=== PATIENT | female | born 1940 | race Caucasian/White ===

== ENCOUNTER 2016-12-21 15:44 | Day surgery (SDC) | payer MEDICARE ==
[~2016-12-21] VITALS: Ht 157.5 cm; Wt 81.6 kg
[~2016-12-21 15:44] MED LIST: DOLOBID500 MG OR
--- NOTE | 2016-12-21 16:36 | Emergency Room Report ---
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 N Clinical Suspician of Infection? N Mental Status: 1 - Regular (Normal Baseline) Sepsis Risk:Possible Sepsis Risk Have you (or family members/close friends) recently traveled outside the [place]? N If Yes, where/when: Have you had exposure to infectious disease within the past month? N TB? Other? Specify: Source patient, RN notes reviewed Exam Limitations no limitations Comment Pt smashed her right 5th finger in a sliding door at home and comes to the ED with the tip of the finger avulsed. Bleeding is controlled. Not UTD on tetanus Cardiac Chest Pain Chest pain indicative of cardiac No ALLERGIES Coded Allergies: Penicillins (12/21/16) Home Medications Active Scripts Diflunisal (Dolobid) 250 MG OR BID #40 TAB Prov: 09/24/13 History Medical History General CAD? No Angina: No [place]: No Hypertension? Yes Hyperlipidemia? No CHF? No DVT? No PE? No COPD? No Asthma? No Anemia? No GERD? No Gastric ulcers? No GI Bleed? No Hernia? No Thyroid Problems? No Hypothyroidism? No CVA? No Seizures? No Diabetes? No Renal Insuffiency? No End Stage Renal Disease? No UTI? No Stones? No BPH? No GB Disease: No Nephritic Syndrome? No Asplenia? No Hepatitis? No Sickle Cell Disease? No Arthritis? No Migraines? No Cataracts? No Glaucoma? No MRSA? No HIV? No TB? No Anxiety? No Depression? No Cancer? No Immunization Hx DT/Tetanus UNKNOWN Surgical Hx Previous Surgery?Y Hysterect Social History Smoking Hx Smoker: Never Smoker Tobacco: No Alcohol Alcohol: No Review of Systems All Other Systems Reviewed and Negative Constitutional see HPI Musculoskeletal see HPI Skin see HPI Physical Exam Vital Signs Vital Signs Date Time Temp Pulse Resp B/P Pulse O2 O2 Flow FiO2 Ox Delivery Rate 12/21 1833 97.9 80 20 162/88 94 12/21 1737 97.9 86 20 162/88 94 12/21 1614 97.9 93 20 176/63 97 12/21 1557 97.9 93 20 176/63 97 General Appearance normal appearance, WD/WN, mild distress Respiratory Status No: respiratory distress. 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 No Results/Orders Current Medication Orders Sig/Sujatha Start time Last Medication Dose Route Stop Time Status Admin Fentanyl Citrate 0 .STK-MED ONE 12/21 1846 DC IV Midazolam HCl 0 .STK-MED ONE 12/21 184 DC .ROUTE Lactated Ringer's 1,000 ML .STK-MED ONE 12/21 1829 DC IV Cefazolin Sodium 0 .STK-MED ONE 12/21 174 DCr .ROUTE Sodium Chloride 50 ML .STK-MED ONE 12/21 174 DC IV Cefazolin Sodium 1 GM ONCE ONE 12/21 1730 DCr 12/21 Sodium Chloride 50 ML IV 12/21 1759 1744 Sodium Chloride 10 ML PRN PRN 12/21 1730 AC IV 12/22 1725 Diphtheria/Pertussis/ 0 .STK-MED ONE 12/21 1647 DC Tetanus Vacc IM Diphtheria/Pertussis/ 0.5 ML ONCE ONE 12/21 1645 DC 12/21 Tetanus Vacc IM 12/21 1646 1653 Orders Procedure Date/time Status ELECTROCARDIOGRAM REQUEST 12/21 183 Active CBC WITH AUTO DIFF 12/21 183 Active BASIC METABOLIC PROFILE 12/21 183 Active [facility] PHYS CONSULT 12/21 1731 Active IV SALINE LOCK 12/21 1727 Active [id number] (PINKY)-3 VIEWS 12/21 1600 Active XRAY/CT/US XRAY/CT/US XRAY finger(s) XR interpretation by reviewed by me Xray Results Avulsion of the tip of her right 5th finger and also avulsion of the tuft of the distal phalanx Departure Departure Time of Disposition 1849 Disposition Still a Patient Clinical Impression Primary Impression: Avulsion, finger tip Qualifiers: Encounter type: initial encounter Qualified Code: S61.209A - Unspecified open wound of unspecified finger without damage to nail, initial encounter Condition STABLE Referrals TJ DENG, BOB MYRICK Additional Instructions Pt being taken to surgery by Dr. Oneil for repair of fingertip Discharge Counseling Counseled pt/family regarding diagnosis, test results, follow up needs ED Critical Care Critical Care No If Critical Care minutes are documented, the time involved in the performance of seperately reportable procedures was not counted toward critical care time documented. I directly delivered medical care to this critically ill and/or injured patient. Timely evaluation and treatment was necessary to address the significant organ system(s) dysfunction present in this patient. at 4412
--- NOTE | 2016-12-21 16:36 | Emergency Room Report ---
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 N Clinical Suspician of Infection? N Mental Status: 1 - Regular (Normal Baseline) Sepsis Risk:Possible Sepsis Risk Have you (or family members/close friends) recently traveled outside the [place]? N If Yes, where/when: Have you had exposure to infectious disease within the past month? N TB? Other? Specify: Source patient, RN notes reviewed Exam Limitations no limitations Comment Pt smashed her right 5th finger in a sliding door at home and comes to the ED with the tip of the finger avulsed. Bleeding is controlled. Not UTD on tetanus Cardiac Chest Pain Chest pain indicative of cardiac No ALLERGIES Coded Allergies: Penicillins (12/21/16) Home Medications Active Scripts Diflunisal (Dolobid) 250 MG OR BID #40 TAB Prov: 09/24/13 History Medical History General CAD? No Angina: No [place]: No Hypertension? Yes Hyperlipidemia? No CHF? No DVT? No PE? No COPD? No Asthma? No Anemia? No GERD? No Gastric ulcers? No GI Bleed? No Hernia? No Thyroid Problems? No Hypothyroidism? No CVA? No Seizures? No Diabetes? No Renal Insuffiency? No End Stage Renal Disease? No UTI? No Stones? No BPH? No GB Disease: No Nephritic Syndrome? No Asplenia? No Hepatitis? No Sickle Cell Disease? No Arthritis? No Migraines? No Cataracts? No Glaucoma? No MRSA? No HIV? No TB? No Anxiety? No Depression? No Cancer? No Immunization Hx DT/Tetanus UNKNOWN Surgical Hx Previous Surgery?Y Hysterect Social History Smoking Hx Smoker: Never Smoker Tobacco: No Alcohol Alcohol: No Review of Systems All Other Systems Reviewed and Negative Constitutional see HPI Musculoskeletal see HPI Skin see HPI Physical Exam Vital Signs Vital Signs Date Time Temp Pulse Resp B/P Pulse O2 O2 Flow FiO2 Ox Delivery Rate 12/21 1833 97.9 80 20 162/88 94 12/21 1737 97.9 86 20 162/88 94 12/21 1614 97.9 93 20 176/63 97 12/21 1557 97.9 93 20 176/63 97 General Appearance normal appearance, WD/WN, mild distress Respiratory Status No: respiratory distress. 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 No Results/Orders Current Medication Orders Sig/Sujatha Start time Last Medication Dose Route Stop Time Status Admin Fentanyl Citrate 0 .STK-MED ONE 12/21 1846 DC IV Midazolam HCl 0 .STK-MED ONE 12/21 184 DC .ROUTE Lactated Ringer's 1,000 ML .STK-MED ONE 12/21 1829 DC IV Cefazolin Sodium 0 .STK-MED ONE 12/21 174 DCr .ROUTE Sodium Chloride 50 ML .STK-MED ONE 12/21 174 DC IV Cefazolin Sodium 1 GM ONCE ONE 12/21 1730 DCr 12/21 Sodium Chloride 50 ML IV 12/21 1759 1744 Sodium Chloride 10 ML PRN PRN 12/21 1730 AC IV 12/22 1725 Diphtheria/Pertussis/ 0 .STK-MED ONE 12/21 1647 DC Tetanus Vacc IM Diphtheria/Pertussis/ 0.5 ML ONCE ONE 12/21 1645 DC 12/21 Tetanus Vacc IM 12/21 1646 1653 Orders Procedure Date/time Status ELECTROCARDIOGRAM REQUEST 12/21 183 Active CBC WITH AUTO DIFF 12/21 183 Active BASIC METABOLIC PROFILE 12/21 183 Active [facility] PHYS CONSULT 12/21 1731 Active IV SALINE LOCK 12/21 1727 Active [id number] (PINKY)-3 VIEWS 12/21 1600 Active XRAY/CT/US XRAY/CT/US XRAY finger(s) XR interpretation by reviewed by me Xray Results Avulsion of the tip of her right 5th finger and also avulsion of the tuft of the distal phalanx Departure Departure Time of Disposition 1849 Disposition Still a Patient Clinical Impression Primary Impression: Avulsion, finger tip Qualifiers: Encounter type: initial encounter Qualified Code: S61.209A - Unspecified open wound of unspecified finger without damage to nail, initial encounter Condition STABLE Referrals TJ DENG, BOB MYRICK Additional Instructions Pt being taken to surgery by Dr. Oneil for repair of fingertip Discharge Counseling Counseled pt/family regarding diagnosis, test results, follow up needs ED Critical Care Critical Care No If Critical Care minutes are documented, the time involved in the performance of seperately reportable procedures was not counted toward critical care time documented. I directly delivered medical care to this critically ill and/or injured patient. Timely evaluation and treatment was necessary to address the significant organ system(s) dysfunction present in this patient. at 2429
[2016-12-21 18:58] LABS: LYMPH # 2.4 K/mm3 (0.7-4.5); LYMPH % 30.4 % (10-50.0)
--- NOTE | 2016-12-21 19:19 | HISTORY AND PHYSICAL REPORT ---
History and Physical History and physical History of Present Illness Patient is a pleasant 76-year-old [id number] female, seen in the ER for orthopedic evaluation and management of traumatic amputation of the tip of her right little finger. She was accompanied by her . She presented to the ER earlier this afternoon with history of sustaining a crush injury to the tip of the right 5th finger while trying to close the sliding doors to her patio. She says the fingertip completely broke off and she managed to control the bleeding. She reports no other injuries. She is not up-to-date with the tetanus vaccination. ALLERGIES Coded Allergies: Penicillins (12/21/16) Home Medications Active Scripts Diflunisal (Dolobid) 250 MG OR BID ; #40 TAB ; Prov: 09/24/13 History Medical History General CAD? No Angina: No [place]: No Hypertension? Yes Hyperlipidemia? No CHF? No DVT? No PE? No COPD? No Asthma? No Anemia? No GERD? No Gastric ulcers? No GI Bleed? No Hernia? No Thyroid Problems? No Hypothyroidism? No CVA? No Seizures? No Diabetes? No Renal Insuffiency? No End Stage Renal Disease? No UTI? No Stones? No BPH? No GB Disease: No Nephritic Syndrome? No Asplenia? No Hepatitis? No Sickle Cell Disease? No Arthritis? No Migraines? No Cataracts? No Glaucoma? No MRSA? No HIV? No TB? No Anxiety? No Depression? No Cancer? No Immunization Hx DT/Tetanus UNKNOWN Surgical Hx Previous Surgery?Y Hysterect Social History Smoking Hx Smoker: Never Smoker Tobacco: No Alcohol Alcohol: No Review of Systems All Other Systems Reviewed and Negative Constitutional see HPI Musculoskeletal see HPI Skin see HPI Physical Exam Vital Signs Vital Signs Date Time Temp Pulse Resp B/P Pulse O2 O2 Flow FiO2 Ox Delivery Rate 12/21 1833 97.9 80 20 162/88 94 12/21 1737 97.9 86 20 162/88 94 12/21 1614 97.9 93 20 176/63 97 12/21 1557 97.9 93 20 176/63 97 General Appearance normal appearance, mild distress Respiratory Status: respiratory distress; Lungs clear to auscultation bilaterally. 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 There is clotted blood with no active bleeding. The volar as well as the dorsal skin of the digital pulp as well as the germinal matrix is completely lost and there is no skin available to obtain coverage over the exposed bone. Other fingers are not involved. She has good range of finger movements including good range of movements at the DIP joint of the right little finger. Both flexor and extensor tendons are clinically intact. Neurovascular status is intact in the rest of the hand. Imaging: X-ray of her right hand shows traumatic amputation through the terminal phalanx of the right little finger-with the tip of the terminal phalanx missing; No other injuries noted. Assessment: 1. Traumatic amputation tip of little finger, right hand 2. Diabetes mellitus. Plan: I reviewed the clinical and x-ray findings with the patient and her . I have discussed the diagnosis, natural history and management options including both nonsurgical and surgical. Given the nature of the injury with exposed bone without coverage, I have recommended surgical intervention with wound debridement and revision amputation of the tip of the right little finger. This would involve shortening of the distal phalanx, removal of the germinal matrix and suturing the volar flap over the remaining terminal phalanx to obtain satisfactory skin cover. The details of the procedure, risks and benefits and alternatives were discussed with the patient and her . They wished to proceed. The complications discussed include but are not limited to infection, injury to nerves and blood vessels, bleeding, partial and deformed nail growth, unsightly and painful stump, stiffness, phantom sensation, altered sensation over the tip of the finger, loss of finger movements, likely need for further surgery in future including revision operation of the finger. We are planning to do this as an emergency at the earliest under local anesthesia and IV sedation. All their questions were answered and they verbalized a good understanding. She has received tetanus vaccine and 1 g of IV Ancef in the ER.
--- NOTE | 2016-12-21 21:13 | Operative Note ---
Procedure/Operative Record Date of Procedure: 12/21/16 Referring physician: Dr. Giordano Pre-op diagnosis: Traumatic amputation tip of little finger, right Post-op diagnosis: Traumatic amputation tip of little finger, right Procedure performed: Wound debridement and revision amputation tip of little finger, right Surgeon: BOB SPENCER MD Customer Program Specialist(s): Amrita Banuelos Anesthesia: Digital block with IV sedation Indications: Patient is a 76-year-old zyfay-noit-wwmgwiex female who sustained a traumatic amputation of tip of her right little finger when she caught her finger in the patio door. She sustained a traumatic amputation with tip of the terminal phalanx, nail, part of the terminal matrix and skin were missing. Surgery was indicated to debride the wound, obtain skin closure over the exposed bone. Findings: Findings at surgery included absent tip of the right little finger with exposed broken terminal phalanx.There is no skin available to obtainThe tip of the phalanx was missing and coverage over the bone.There was no obvious contamination of the wound. The nail was completely avulsed and missing. Part of the nailbed was also missing. There was clotted blood over the tip which started bleeding after washing the wound with normal saline. No other finger involvement was noted. Description of procedure: Following a detailed discussion, in the ER with the patient and her , patient opted for wound debridement and revision of the stump to obtain skin closure. I have discussed the diagnosis, natural history and management options including both nonsurgical and surgical. The details of the procedure, risks and benefits and alternatives were discussed with the patient. The complications discussed include but are not limited to infection, injury to nerves and blood vessels, bleeding, deformed and partial nail growth, unsightly and painful stump , stiffness, phantom sensation, altered sensation over the tip of the finger, loss of finger movements, likely need for further surgery in future including revision operation of the finger. All their questions were answered and they verbalized a good understanding. The consent form was reviewed and signed. A physical examination was performed and documented. Patient was brought to the operating room and placed supine on the operating table. All the bony prominences were appropriately padded. A digital block with ropivacaine and IV sedation was administered by the tissue coordinator. The right hand was prepped and draped in the usual sterile fashion. A preprocedure timeout was obtained as per protocol. The intraoperative findings were as noted above. The wound was thoroughly washed out with normal saline. A digital tourniquet was applied. The wound was debrided thoroughly and again washed out with normal saline. I then proceeded to revise the stump. Mid lateral incisions were made on both sides of the terminal phalanx. The phalanx was shortened leaving the flexor and extensor tendon attachments intact. The germinal matrix removed with the knife and was thoroughly curetted to prevent any partial or deformed nail growth. After fashioning the volar flap appropriately, the tourniquet was released and hemostasis was obtained with bipolar diathermy. The wound was again thoroughly irrigated with normal saline. A wound swab was obtained for culture and sensitivity. I then proceeded to close the volar flap to the dorsal skin with 5 -0 Ethilon interrupted sutures. A very good and satisfactory closure was obtained. Sterile dressings applied with Xeroform, gauze, Kerlix and Coban were applied. Following the procedure patient was transferred onto a gurney and transported to the postoperative recovery area in stable condition. She tolerated the procedure well and there were no immediate complications. The swab, needle and instrument counts were correct at the end of the procedure as per the scrub team. Following a period of observation in the PACU, patient was discharged home with oral antibiotics and appropriate written instructions. Follow-up in my office in 2-3 days time for change of dressings. EBL (ml): 5 Implant: None Complications: None Specimens: Wound swab for culture and sensitivity
[2016-12-21 22:14] VITALS: BP 158/90
--- NOTE | 2016-12-22 13:32 | RADIOLOGY REPORT PS360 ---
[id number] (PINKY)-3 VIEWS HISTORY: SMASHED IN DOOR Patient Age: 76 years: Female Ordering Physician: Tomasz Giordano MD TECHNIQUE: 3 views right fifth finger COMPARISON : FINDINGS There is a fracture involving the distal tuft of the fifth finger. Diffuse soft tissue swelling is seen at the tip of the finger Could not exclude loss of soft tissue at the tip requires clinical correlation has been some dilatation or loss of soft tissue at the tip of the finger?.. There is there is minor fracture and mild disruption of the cortex of the distal tuft just beneath this thin soft tissue . The middle and proximal phalanx intact. Joint space narrowing and Arthritic changes are seen at the DIP joint finger with mild marginal osteophytes IMPRESSION: Fracture at distal tuft fifth finger. Diffuse swelling fifth finger most evident distally. Radiographically there appears be loss of soft tissue from the tip of the finger. Correlation required clinically
== END 2016-12-21 21:30 | disposition home or self-care (01) ==
LOC: UTC 15:44 → ER 15:52 → UTC 15:52 → SDC 19:17
PROVIDERS: General Practice; Orthopaedic Surgery
PROC: 0PBT0ZZ Excision of Right Finger Phalanx, Open Approach (ICD-10-PCS; 2016-12-21)
PROC: 0HBQXZZ Excision of Finger Nail, External Approach (ICD-10-PCS; principal; 2016-12-21 18:45)
DX: S68.126A Partial traumatic metacarpophalangeal amputation of right little finger, initial encounter (principal); W23.0XXA Caught, crushed, jammed, or pinched between moving objects, initial encounter

== ENCOUNTER → 2017-01-08 | Outpatient (CLI) | payer MEDICARE ==
--- NOTE | 2017-01-08 11:24 | RADIOLOGY REPORT PS360 ---
[id number] (PINKY)-3 VIEWS CLINICAL INDICATION: Follow-up surgery/injury POST OP FU ORDERING PHYSICIAN: BOB SPENCER MD PATIENT AGE: 76 years COMPARISON: 12/21/2016 FINDINGS: There has been amputation at the proximal aspect of the distal phalanx of the fifth finger. 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 No obvious lytic change evident. No radio opaque foreign body. IMPRESSION: Status post amputation of the proximal aspect of the distal phalanx. No obvious acute finding.
== END ==
LOC: RAD 10:05
DX: Z48.89 Encounter for other specified surgical aftercare (principal)